=== PATIENT | male | born 1990 | race Two or more races ===

== ENCOUNTER 2018-12-01 16:50 | Emergency (ER) | payer OTHER ==
[~2018-12-01] VITALS: Ht 157.5 cm; Wt 104.3 kg
[2018-12-01 17:10] VITALS: Ht 157.5 cm; Wt 104.3 kg
[2018-12-01 18:02] VITALS: BP 147/89
== END 2018-12-01 18:02 | disposition home or self-care (01) ==
LOC: ED 16:50
DX: H57.89 Other specified disorders of eye and adnexa (principal)